=== PATIENT | male | born 1965 | race Caucasian/White ===

== ENCOUNTER 2025-09-28 18:28 | Emergency (ER) | payer MEDICAID ==
[~2025-09-28] VITALS: Ht 165.1 cm; Wt 72.0 kg
[~2025-09-28 18:28] MED LIST: CYAN250010 PO; ESCI20TA37 PO; HYDR-4001 MT; LISI10TA26 PO
[2025-09-28 18:54] VITALS: O2SAT 97
[2025-09-28] MEDS: LIDOCAINE HCL 1% 20ML VIAL INFIL ONE (22:49)
[2025-09-28] MEDS: ACETAMINOPHEN 500MG TABLET PO ONE (22:50)
[2025-09-29] MEDS ORDERED: CEPH500C2 MT (00:32)
[2025-09-29] MEDS: BACITRACIN ZINC OINT UDPKT TOP ONE (01:08)
[2025-09-29 01:12] VITALS: BP 121/77; PULSE 91; RESP 17; TEMP 37.1; O2SAT 99
== END 2025-09-29 01:14 | disposition home or self-care (01) ==
LOC: ER 18:28
DX: S61.211A Laceration without foreign body of left index finger without damage to nail, initial encounter (principal); I10 Essential (primary) hypertension; F41.9 Anxiety disorder, unspecified; Z79.899 Other long term (current) drug therapy; W23.2XXA Caught, crushed, jammed or pinched between a moving and stationary object, initial encounter; Y93.89 Activity, other specified; Y92.89 Other specified places as the place of occurrence of the external cause; Y99.8 Other external cause status
CPT/HCPCS: 99283; 73120; 12002; J2003

== ENCOUNTER → 2025-10-05 | Emergency (ER) | payer MEDICAID ==
[~2025-10-05] VITALS: Ht 167.6 cm; Wt 85.0 kg
[~2025-10-05] MED LIST changes: +CEPH500C2 MT
[2025-10-05 18:33] VITALS: O2SAT 99
[2025-10-05 18:38] VITALS: BP 118/88; PULSE 95; RESP 18; TEMP 37.1; O2SAT 99
== END ==
LOC: ER 18:14
DX: Z48.02 Encounter for removal of sutures (principal); Z53.21 Procedure and treatment not carried out due to patient leaving prior to being seen by health care provider
CPT/HCPCS: 99281